=== PATIENT | female | born 1935 | race Two or more races ===

== ENCOUNTER 2017-06-06 07:11 | Inpatient (IN) | payer MEDICARE, BC ==
--- NOTE | ~2017-06-06 | CO ---
Unit #: [id number] #: [id number] Patient: CAYLA CARDENAS [id number] [address] [place], [place] [address] [id number] I MR#: [id number] NAME: CAYLA CARDENAS ROOM: 566 Age: 82 Sex: F Admission Date: 06/06/2017 : 1935 Attending Physician: Malinda Quesada M.D. Primary Care Physician: Yon Workman M.D. Consultation Date: 06/06/2017 CONSULTATION REPORT HISTORY OF PRESENT ILLNESS An 82-year-old female, who is a very poor historian, in fact she told me she had no medical problems and the family stated she had no medical problems other than a weak kidney. She has multiple medical problems including significant heart disease and left ventricular dysfunction. She had increasing shortness of breath last night, presented to the emergency room. She has improved with diuresis. She denies chest pain, sputum production, pleurisy, hemoptysis, fever, or wheezing. Again, history could be somewhat unreliable. PAST MEDICAL HISTORY Taken from the chart. She has coronary artery disease, diabetes, hypertension, left ventricular dysfunction with an EF of 40%, mild pulmonary hypertension with an RVSP of 30-40, hypothyroidism, hyperlipidemia and she has chronic kidney disease, followed by Dr. Garcias. MEDICATIONS At home per med rec sheet include Norvasc, gabapentin, Lantus insulin, Bumex, atenolol, Lipitor, Synthroid, a variety of eye drops, gabapentin. ALLERGIES No known medical allergies. SOCIAL HISTORY She does not smoke or drink. FAMILY HISTORY No familial lung disease. REVIEW OF SYSTEMS She denies any leg pain, swelling, hematuria, dysuria, abdominal pain, melena, hematochezia, hematemesis, emesis, chest pain, palpitations, headache, dizziness. Further review of systems negative. PHYSICAL EXAMINATION GENERAL: Reveals a patient, who is comfortable, head mildly elevated. VITAL SIGNS: She is afebrile, pulse 70, respiratory rate is 19, blood pressure 144/65. HEENT: Pupils are equal, round, and reactive to light. Sclerae anicteric. Head atraumatic. NECK: Supple. No supraclavicular or cervical adenopathy appreciated. Mucous membranes moist. CHEST: Crackles at the bases. No wheeze or stridor. CARDIAC: Reveals regular rate and rhythm. A systolic murmur. No gallop. Unit #: [id number] #: [id number] Patient: CAYLA CARDENAS ABDOMEN: Obese, soft, and nontender. No hepatomegaly or rebound. EXTREMITIES: Reveal no clubbing or cyanosis. There is edema. No calf tenderness. SKIN: Warm and dry without rash or diaphoresis. NEUROLOGIC: Grossly intact. No focal, motor or sensory deficits. DIAGNOSTIC STUDIES IMAGING STUDIES: Chest x-ray, cardiomegaly and congestive heart failure. LABORATORY RESULTS: BUN is 30, creatinine is 1.5, potassium 5.5, BNP 415. INR normal. Cardiac enzymes normal. White blood cell count 12.5, hemoglobin 10, platelet count 258. Blood cultures performed and are pending. Echocardiogram; EF 40% to 45%, moderate mitral regurgitation, RVSP 44. IMPRESSION 1. Acute hypoxemic respiratory failure secondary to congestive heart failure. 2. Congestive heart failure secondary to the left ventricular dysfunction and valvular heart disease, made worse by likely obstructive sleep apnea. 3. Obesity, snoring, likely obstructive sleep apnea. 4. Medical problems listed above. PLAN Diuresis. Consider good chest x-ray at a later date, but I suspect her crackles and interstitial infiltrates will resolve with diuresis. If not, consider PFTs and noncontrast CT. Outpatient nocturnal polysomnography, given her left ventricular dysfunction and other medical problems, would be suggested. Thank you very much for allowing me to participate in the care of Ms. Womack. Dictated by... Jos Schrader M.D. AXEL/sincere TD: 06/07/2017 01:14 JOB #: [id number] CC: April Gamez M.D. CONSULTATION REPORT Page 1 of 1 X Jos Schrader MD CONSULTATION REPORT
--- NOTE | ~2017-06-06 | EKG ---
PATIENT: CAYLA CARDENAS UNIT #: [id number] Ventricular Rate: 67 BPM Atrial Rate: 67 BPM P-R Interval: 188 ms QRS Duration: 96 ms Q-T Interval: 420 ms QTC Calculation(Bezet): 443 ms P [place]: 18 degrees Calculated R [place]: 33 degrees Calculated T [place]: 88 degrees Diagnosis Line: Normal sinus rhythm Diagnosis Line: Normal ECG Diagnosis Line: When compared with ECG of 06-JUN-2017 08:24, Diagnosis Line: (unconfirmed) Diagnosis Line: Questionable change in QRS axis Diagnosis Line: Confirmed by MINERVA YA MD ([id number]) on 06/08/2017 Diagnosis Line: 11:31:52 PM INTERPRETING MD: BHAKTI SHAH
--- NOTE | ~2017-06-06 | CR63 ---
[facility] A Service of [facility] RADIOLOGY TEXT RESULTS PATIENT: CAYLA CARDENAS LOCATION: [facility] 566-01 : 37 UNIT #: [id number] AGE: [address]: Malinda Quesada MD SEX: F ORDER DR: [id number] [facility] [address] [facility]. [place], [place] [address] [id number] I MR#: [id number] Acc #: [id number] NAME: CAYLA CARDENAS : 1935 SEX: F STUDY DATE/TIME: 06/07/2017 13:19 UNIT: [facility] ROOM: [facility] STUDY DESCRIPTION: CR Chest 2 View Attending Physician: Malinda Quesada M.D. Ordering Physician: Jos Schrader M.D. Primary Care Physician: Yon Workman M.D. MEDICAL IMAGING REPORT This report is preliminary unless electronic signature is present EXAM Chest 06/07/2017 HISTORY 82-year-old woman with short of air. History of [place], high blood pressure, congestive heart failure, symptoms indicated since yesterday. COMPARISON Portable chest 06/06/2017 FINDINGS Two-view chest demonstrates cardiomegaly with calcific plaquing in the arch. Vascular congestion is present, accentuated somewhat by large body habitus and low lung volumes. Left pleural effusion suspect with trace effusion on the right. It is difficult to exclude coexisting infiltrate in the left lower lobe. IMPRESSION Atherosclerotic cardiovascular disease with congestive heart failure slightly improved. Trace right effusion with left pleural effusion noted. Airspace infiltrate is not excluded from the left lower lobe, consistent with lobar edema and/or pneumonia. Dictated by... Warren Ornelas M.D. THIS IS AN ELECTRONICALLY VERIFIED REPORT Warren Ornelas M.D. at 06/08/2017 8:09 AM CELE/landry TD: 06/07/2017 22:21 JOB #: [id number] [facility] A Service of [facility] RADIOLOGY TEXT RESULTS PATIENT: CAYLA CARDENAS LOCATION: [facility] 566-01 : 37 UNIT #: [id number] AGE: [address]: Malinda Quesada MD SEX: F ORDER DR: MEDICAL IMAGING REPORT Page 1 of 1 COPY
--- NOTE | ~2017-06-06 | CO ---
Unit #: [id number] #: [id number] Patient: CAYLA CARDENAS [id number] [address] [address] [id number] I MR#: [id number] NAME: CAYLA CARDENAS ROOM: 566 Age: 82 Sex: F Admission Date: 06/06/2017 : 1935 Attending Physician: Malinda Quesada M.D. Primary Care Physician: Yon Workman M.D. Consultation Date: 06/06/2017 CONSULTATION REPORT REASON FOR CONSULTATION Hyperkalemia, elevated creatinine level. HISTORY OF PRESENT ILLNESS The patient is an 82-year-old [place] obese lady with known history of hypertension, type 2 diabetes, chronic kidney disease stage 3 with baseline creatinine between 1.5 to 2, admitted with shortness of breath and difficulty breathing. The patient is known to me from office. She has underlying CKD, stage 3 attributed to diabetic nephropathy clinically and type IV RTA with hypoaldosteronism with intermittent hyperkalemia managed successfully with diuretics. The patient has not been on fludrocortisone with her underlying expanded volume. The patient has never needed dialysis in the past. The patient also has underlying coronary artery disease with an ejection fraction of 40% to 45%, hypertension, hyperlipidemia, hypothyroidism. PAST MEDICAL HISTORY Significant for hypertension, hyperlipidemia, chronic kidney disease stage 3, chronic hyperkalemia secondary to hypoaldosteronism. Other past medical history of hypothyroidism, neuropathy, morbid obesity, CAD with angioplasty and stent placement in 2009. PAST SURGICAL HISTORY Significant for , bilateral knee surgery. SOCIAL HISTORY The patient is , lives at home with her family, and does not drink or smoke. ALLERGIES No known drug allergies. REVIEW OF SYSTEMS CVS: As above. RESPIRATORY: No expectoration. GI: No diarrhea. No vomiting. : No hematuria. No dysuria. PHYSICAL EXAMINATION GENERAL: The patient is awake, alert, and oriented. VITAL SIGNS: Temperature is 98 degrees, saturation 97%, blood pressure is 153/66, heart rate is 70 per minute. HEENT: Head is atraumatic. Extraocular movements are intact. Pupils are reactive. Sclerae are anicteric. Unit #: [id number] #: [id number] Patient: CAYLA CARDENAS NECK: Supple. There is no elevation of the JVD. CHEST: Clear. Air entry is equal bilaterally. HEART: S1, S2 audible. There is no S3, no S4. ABDOMEN: Soft. There is no organomegaly. No guarding. No rigidity. No rebound tenderness. EXTREMITIES: There is 1 to 2+ edema. PAROLE OR PROBATION OFFICER: Motor system is intact. Cerebellar system is intact. DIAGNOSTIC STUDIES LABORATORY RESULTS: Sodium is 136, potassium is 5.5, chloride is 23, BUN is 30, creatinine is 1.5, glucose is 235, calcium is 8.5. WBC 12.5, hemoglobin is 10, hematocrit is 31.7, platelets are 258. BNP is 415. IMPRESSION 1. Hyperkalemia secondary to hypoaldosteronism clinically secondary to diabetes, type IV RTA. We will increase Bumex. We will hold fludrocortisone at this time. No need for Kayexalate. Restrict potassium in the diet. 2. Chronic kidney disease, stage 3 secondary to diabetic nephropathy clinically. 3. Diabetes. 4. Renal function is close to baseline, volume is expanded. We will continue diuresis. 5. Anemia. 6. Coronary artery disease. 7. Congestive heart failure. 8. Hyponatremia. 9. History of congestive heart failure/cardiomyopathy. Dictated by... Bimal Garcias M.D. RA/sincere TD: 06/07/2017 01:41 JOB #: [id number] CONSULTATION REPORT Page 1 of 1 X Bimal Garcias MD X CONSULTATION REPORT
--- NOTE | ~2017-06-06 | EKG ---
PATIENT: CAYLA CARDENAS UNIT #: [id number] Ventricular Rate: 69 BPM Atrial Rate: 69 BPM P-R Interval: 184 ms QRS Duration: 88 ms Q-T Interval: 420 ms QTC Calculation(Bezet): 450 ms P [place]: 29 degrees Calculated R [place]: 92 degrees Calculated T [place]: 61 degrees Diagnosis Line: Normal sinus rhythm Diagnosis Line: Rightward axis Diagnosis Line: Septal infarct , age undetermined Diagnosis Line: Abnormal ECG Diagnosis Line: No previous ECGs available Diagnosis Line: Confirmed by MINERVA YA MD ([id number]) on 06/08/2017 Diagnosis Line: 10:50:15 PM INTERPRETING MD: BHAKTI SHAH
--- NOTE | ~2017-06-06 | CO ---
Unit #: [id number] #: [id number] Patient: CAYLA CARDENAS [id number] [address] [place], [place] [address] [id number] I MR#: [id number] NAME: CAYLA CARDENAS ROOM: 566 Age: 82 Sex: F Admission Date: 06/06/2017 : 1935 Attending Physician: Malinda Quesada M.D. Primary Care Physician: Yon Workman M.D. Consultation Date: 06/06/2017 CONSULTATION REPORT REASON FOR CONSULTATION Acute on chronic systolic congestive heart failure. HISTORY OF PRESENT ILLNESS This is an 82-year-old female from [place], who is well known to Dr. Looney. She sees in our office. She has a previous AZ and stents and her last cath was back in 2009, which revealed the stents were widely patent. She had her last stress test in 2012. The patient's LVEF is 40% to 45% on her last echo back in 2014, she has chronic kidney disease stage 3 to 4. She has diabetes, hypertension, hyperlipidemia, and hypothyroidism. The patient was in [facility] with pneumonia. She has been in congestive heart failure before. She woke up this morning very dyspneic and felt smothery. Her daughter felt like she was cold, like she had chills, but the daughter who is at the bedside says the patient was doing fairly well in the last couple of days. No recent travel and no recent illness. She has occasional dry cough. Denies chest pain or pain in her neck, bilateral jaws, shoulders, arms, or elbow. She denies palpitations. No dizziness, presyncope, or syncope. She does have a chronic lower extremity edema. In the emergency room, the patient's blood pressure was 147/60, heart rate 72, respirations 18, temperature 97.7, and O2 saturation on admission on room air, her sat was 78%, but right now on 4L nasal cannula, she is 100%. Her chest x-ray indicates congestive heart failure. Her BNP is 415. Her creatinine is 1.5 with a potassium of 5.5. The patient was given albuterol treatment and 125 mg of IV Solu-Medrol along with 40 of IV Lasix. Cardiology consulted to assist with evaluation and management. It is noted that her initial cardiac enzymes are negative. Her EKG is sinus rhythm, nothing acute. PAST MEDICAL HISTORY 1. Diabetes mellitus, type 2. 2. Hypertension. 3. Hyperlipidemia. 4. Hypothyroidism. 5. Neuropathy. 6. Chronic kidney disease, follows with Dr. Garcias. Her baseline creatinine is 1.6 to 1.7, and was in stage 3-4 chronic kidney disease. 7. Coronary artery disease and previous [place] status post PCI and stent to mid LAD in 1997. In 1999, she had another stent placed in the distal LAD. The mid-LAD stent with patent. Her last cardiac cath was in 2009 that Unit #: [id number] #: [id number] Patient: CAYLA CARDENAS showed both stents widely patent. It was performed because of a false-positive stress test. Last stress test was on 01/21, which showed a small apical infarct with an area of ayo-infarction and ischemia, but the patient was asymptomatic, and the results of the 2009 false-positive stress test, they elected no catheterization at that time. In 09/2015, a 2D echo, which was done at [facility], revealed LVEF of 40% to 45% with mild mitral regurgitation, mild tricuspid regurgitation with elevated RVSP of 30 to 40 mmHg with aortic valve mildly calcified and zddqikav-pm-[id number] mitral annular calcification. 8. Chronic systolic diastolic congestive heart failure. 9. Obesity, weight 175 pounds. 10. Nonsmoker. 11. Neuropathy. PAST SURGICAL HISTORY 1. Status post PCI and stent in 1997 to the mid LAD and in 2009 status post PCI and stent to the distal LAD. 2. Bilateral knee surgery. 3. section. HOME MEDICATIONS This is preliminary med rec that has to be reconciled. 1. Amlodipine 10 mg 1 tablet daily. 2. Gabapentin 400 mg 1 tablet at bedtime. 3. Lantus 40 units subcutaneously daily. 4. Latanoprost eye drops 1 drop both eyes at bedtime. 5. Atorvastatin 20 mg 1 tablet daily. 6. Amlodipine 10 mg 1 tablet daily. 7. Atenolol 50 mg 1 tablet daily. 8. Bumex 2 mg 1 tablet p.o. daily. 9. Timolol eye drops 1 drop both eyes twice daily. 10. Levothyroxine 112 mcg 1 tablet p.o. daily. 11. She is on Bumex. 12. Aspirin 325 daily. 13. B complex 1 tablet daily. 14. Vitamin E 500 mg 1 tablet daily. 15. Glucosamine chondroitin diet 1 tablet daily. 16. Sodium bicarbonate 650 mg 1 tablet twice daily. 17. Calcitonin 0.5 mg 1 tablet every other day. As noted above, this will be reconciled. ALLERGIES No known drug allergies. SOCIAL HISTORY The patient lives with her spouse. She ambulates with a cane and walker only. She is a very sedentary due to her multiple medical issues. FAMILY HISTORY No known coronary artery disease in her immediate family members. PHYSICAL EXAMINATION GENERAL: Ms. Cardenas is an 82-year-old female. She has some dyspnea with conversation and at rest, but in no distress. VITAL SIGNS: Blood pressure 143/75, heart rate 70, respirations 16, temperature 97.7, and O2 saturations 94% on 4L. NECK: Trachea midline. No thyromegaly or lymphadenopathy. Normal carotid upstrokes. No jugular venous distention. Unit #: [id number] #: [id number] Patient: CAYLA CARDENAS HEART: S1 and S2. Regular rate and rhythm. Soft systolic murmur over aortic region and the left sternal border. LUNGS: Very diminished. Some fine rales in bases and upper airways have some scattered wheezes. ABDOMEN: Obese, soft, and nontender. EXTREMITIES: Pedal pulses are palpable, 2+ pedal edema. DIAGNOSTIC STUDIES LABORATORY RESULTS: Glucose 235, BUN 30, creatinine 1.5, EGFR is 32.6, sodium 136, potassium is 5.5, chloride 106, CO2 of 23, and calcium is 8.5. Total protein 7.5, albumin 3.7, bilirubin total 0.5, AST 19, ALT 17, and alkaline phosphatase is 72. BNP is 415. Lactic acid is 1.0. WBCs 12.5, hemoglobin 10.0, hematocrit 31.7, and platelets 258. Initial cardiac enzymes; CK-MB is 1.4 and troponin less than 0.05, CK-MB is 1.7 and troponin less than 0.05. Blood cultures are pending. IMAGING STUDIES: Chest x-ray shows cardiomegaly with vascular congestion and interstitial alveolar prominence in both lungs, suggesting CHF. EKG shows normal sinus rhythm with ventricular rate of 69 beats per minute, rightward axis deviation, Q-waves noted in V1 through V3, and poor R-wave progression. IMPRESSION 1. Acute hypoxic respiratory failure. 2. Acute bronchitis. 3. Acute on chronic systolic congestive heart failure, last echo in 2014 shows left ventricular ejection fraction of 40% to 45%. 4. Hyperkalemia. 5. Acute on chronic kidney disease, stage 3-4. 6. Diabetes mellitus, type 2. 7. Hypertension. 8. Hyperlipidemia. 9. Hypothyroidism. 10. Coronary artery disease with previous myocardial infarction status post percutaneous coronary intervention and stents in the mid and distal left anterior descending, which were widely patent on the last catheterization in 2009. 11. Nonsmoker. 12. Obesity, 175 pounds. 13. Neuropathy. PLAN 1. Cardiology consult to assist with evaluation and management. We will continue to gently diurese with IV Lasix 20 mg IV every 12 hours[address] We will have Dr. Garcias, the patient's fabric inspector, to be consulted to help with management. The family is concerned with her kidney issues. 2. We will stop the Norvasc due to her pedal edema and we will monitor her blood pressure. We could add hydralazine if needed for blood pressure management. She is on a beta-mirella. 3. There is no SENTHIL inhibitor or ARB for cardiomyopathy because of acute on chronic kidney disease. 4. We will obtain 2D echo, looking back on records at [facility], her last echo was in 2014, so we will re-evaluate. So far, her cardiac enzymes are negative and EKG does not show anything acute. On exam, there are no signs or symptoms of unstable angina. 5. Obtain fasting lipid profile and evaluate. 6. Further recommendations pending per Dr. Gamez. Thank you very much for allowing us to assist in care. Unit #: [id number] #: [id number] Patient: CAYLA CARDENAS Dictated by... Jose Chavira/sincere TD: 06/06/2017 11:32 JOB #: [id number] CONSULTATION REPORT Page 1 of 1 X Melani Carrasquillo APRN CONSULTATION REPORT
--- NOTE | ~2017-06-06 | HP ---
Unit #: [id number] #: [id number] Patient: CAYLA CARDENAS [id number] [facility] [address] [facility]. [place], [place] [address] [id number] I MR#: [id number] NAME: CAYLA CARDENAS ROOM: 32489 Age: 82 Sex: F Admission Date: 06/06/2017 : 1935 Attending Physician: Malinda Quesada M.D. Primary Care Physician: Yon Workman M.D. HISTORY AND PHYSICAL CHIEF COMPLAINT Shortness of breath. HISTORY OF PRESENTING ILLNESS Ms. Cardenas is an 82-year-old female with multiple medical problems who was doing well until yesterday. This morning around 3 o'clock she had yogurt because she thought her blood sugar was dropping. After that, two hours later, she started having shortness of breath. She was sweating. Patient's daughter called EMS and patient's oxygen saturation was 76%. Patient was brought to the ER at [facility] and is being admitted for acute hypoxic respiratory failure. Patient does not complain of chest pain. She does not complain of orthopnea or paroxysmal nocturnal dyspnea. She does not complain of any fever, chills, or rigors. She does have leg swelling, but that is kind of chronic. She does not complain of any nausea or vomiting. At this time, her shortness of breath has much improved. PAST MEDICAL HISTORY Patient has multiple medical history. 1. Coronary artery disease, status post angioplasty 20 years ago. Last catheterization was done in 2009, and both stents were widely patent. Ejection fraction of 40% to 45%. 2. Hypertension. 3. Hyperlipidemia. 4. Hypothyroidism. 5. Diabetes mellitus type 2. 6. Neuropathy. 7. Morbid obesity. 8. Chronic kidney disease. PAST SURGICAL HISTORY 1. section. 2. Bilateral knee surgeries. SOCIAL HISTORY Patient lives at home with her and son and frwxqkwv-kw-khc. No history of smoking, alcohol, or drug abuse. ALLERGIES No known drug allergies. REVIEW OF SYSTEMS No history of fever, chills, or rigors. No history of chest pain. No history of abdominal pain, no history of nausea or vomiting, and no Unit #: [id number] #: [id number] Patient: CAYLA CARDENAS history of constipation or diarrhea. Leg swelling is present. No history of dizziness or syncopal episode. PHYSICAL EXAMINATION GENERAL: Patient is being evaluated in ER room 13. VITAL SIGNS: Blood pressure is 144/65, respiratory rate 19, pulse 70, temperature 98.2, and oxygen saturation is 95% on face mask 100%. On admission, patient was on 4 liters nasal cannula, and her saturation was 100%. Patient laid down for echocardiogram, and that is when she desaturated, and patient was placed on 100% face mask. HEENT: Head is normocephalic. NECK: Supple. CHEST: Fair air entry, decreased at the bases. Rales are present. CARDIOVASCULAR: S1 and S2 positive. Regular rhythm. ABDOMEN: Obese. EXTREMITIES: Bilateral edema is present. CENTRAL NERVOUS SYSTEM: Awake, alert, and oriented x3. Does not seem to have any focal neurological deficit. DIAGNOSTIC STUDIES LABORATORY: WBC 12.5, hemoglobin 10, hematocrit 31.7, and platelet count of 258,000. Troponin less than 0.05. PT-INR 10.2 and 0.9. Lactic acid is 1. Sodium 136, potassium 5.5, chloride 106, BUN 30, and creatinine 1.5. Liver enzymes are stable. BNP is elevated to 415. Second set of troponin is less than 0.05. Glucose is 248. IMAGING: Chest x-ray, single view, was done with findings suggesting congestive heart failure. No dense consolidation or visible pleural fluid. ASSESSMENT Patient is being admitted to telemetry unit. Patient's family has refused ICU admission as she is Do Not Resuscitate. ADMITTING DIAGNOSES 1. Acute hypoxic respiratory failure. 2. Acute on chronic systolic congestive heart failure. 3. Acute bronchitis. 4. Hyperkalemia. 5. Acute on chronic kidney disease. 6. Diabetes mellitus type 2. 7. Coronary artery disease. Details are above. 8. History of chronic back pain. 9. Hypertension. 10. Hyperlipidemia. 11. Hypothyroidism. 12. Morbid obesity. PLAN Admit to telemetry unit. IV Lasix 20 mg q.12 is being started. [facility] will be consulted. Norvasc is being discontinued because of leg swelling. No SENTHIL or ARB inhibitors because of acute on chronic kidney disease. D-dimers will be done. Home medications will be reviewed and adjusted. Home medications are being reconciled at this time. Lovenox 40 mg subcutaneous daily. Echocardiogram is being done. Accu-Cheks a.c. and at bedtime and insulin sliding scale low-dose protocol. The plan of care has been discussed with the patient, patient's daughter, and patient's son-in-law at length. Patient's son-in-law is an Unit #: [id number] #: [id number] Patient: CAYLA CARDENAS oncologist, and most of the history was taken from him. Patient's code status is Do Not Resuscitate. Please refer to progress note for further orders. Dictated by Elina Gentile TD: 06/06/2017 16:13 JOB #: [id number] HISTORY AND PHYSICAL Page 1 of 1 X Malinda Quesada MD X HISTORY AND PHYSICAL
--- NOTE | ~2017-06-06 | CR72 ---
[facility] A Service of [facility] RADIOLOGY TEXT RESULTS PATIENT: CAYLA CARDENAS LOCATION: [place] [address] : [birth year] UNIT #: [id number] AGE: [address]: Malinda Quesada MD SEX: F ORDER DR: [id number] [place] [id number] [facility]. [place], [place] [address] [id number] P MR#: [id number] Acc #: [id number] NAME: CAYLA CARDENAS : 1935 SEX: F STUDY DATE/TIME: 06/06/2017 8:10 UNIT: [facility]NAL[facility] ROOM: STUDY DESCRIPTION: CR Chest Single View Portable Ordering Physician: Yunier Soares M.D. MEDICAL IMAGING REPORT This report is preliminary unless electronic signature is present EXAM Portable chest INDICATION Shortness of air this morning. PROCEDURE Frontal view chest. COMPARISON None. FINDINGS Cardiomegaly. Vascular congestion and interstitial and alveolar prominence in both lungs. No visible pleural fluid or pneumothorax. IMPRESSION Findings suggesting CHF. No dense consolidation or visible pleural fluid. Dictated by... Rodney Lubin M.D. THIS IS AN ELECTRONICALLY VERIFIED REPORT Rodney Lubin M.D. at 06/07/2017 8:14 AM KEN/raul TD: 06/06/2017 09:01 JOB #: [id number] MEDICAL IMAGING REPORT Page 1 of 1 COPY
--- NOTE | ~2017-06-06 | DS ---
Unit #: [id number] #: [id number] Patient: CAYLA CARDENAS [id number] [address] [address] [id number] I MR#: [id number] NAME: CAYLA CARDENAS ROOM: 566 Age: 82 Sex: F Admission Date: 06/06/2017 : 1935 Discharge Date: 06/09/2017 Attending Physician: Malinda Quesada M.D. Primary Care Physician: Yon Workman M.D. DISCHARGE SUMMARY FINAL DIAGNOSES 1. Acute hypoxic respiratory failure, improved. 2. Acute on chronic systolic congestive heart failure. 3. Ejection fraction of 40% to 45%. 4. Acute on chronic kidney disease. 5. Hypertension. 6. Hyperlipidemia. 7. Diabetes mellitus type 2. 8. Coronary artery disease with previous myocardial infarction, status post percutaneous coronary intervention/stent in left anterior descending. Stents are patent in 2009. 9. Morbid obesity. 10. Anemia. DISCHARGE MEDICATIONS 1. Neurontin 400 mg q. h.s. 2. Coreg 6.25 mg b.i.d. 3. Furosemide 40 mg twice a day. 4. Xalatan eyedrops both eyes at bedtime. 5. Lipitor 20 mg daily. 6. Hydralazine 25 mg twice a day. 7. Insulin 30 units subcu daily. 8. Levothyroxine 112 mcg p.o. daily. 9. Isosorbide 60 mg daily. 10. Vitamin D - continue home dose. 11. Continue eyedrops. 12. Ferrous sulfate 325 mg daily. HOSPITAL COURSE 82-year-old female who was admitted on 06/06/17 with shortness of breath and chest tightness. Patient was admitted to telemetry unit. Patient was diagnosed with acute hypoxic respiratory failure secondary to acute and chronic systolic congestive heart failure. Patient was treated with IV diuretics. Medications were adjusted. Patient was seen by Dr. Espino. Patient is doing much better at this time. Congestive heart failure education was provided. [facility] to follow the patient at home. Patient's kidney functions were worse. Patient does have history of chronic kidney disease and Dr. Garcias evaluated the patient during hospitalization. Patient's medications have been adjusted. Patient's Bumex has been discontinued and Lasix has been started. Discussed with patient's family at length. They do verbalize understanding plan of care. Patient refused to go to subacute rehab, is being sent home with home healthcare. Unit #: [id number] #: [id number] Patient: CAYLA CARDENAS DISCHARGE LAB WORKUP Sodium 135, potassium 3.8, chloride 96, BUN 49, creatinine 1.6, calcium 8.9. CBC shows WBC 11.3, hemoglobin 8.6, hematocrit 26.7 and platelet count of 229. DISCHARGE INSTRUCTIONS 1. Patient is being discharged home in stable condition. 2. Follow up with primary care provider in one week. 3. Follow up with Dr. Looney 07/29/17. 4. Follow up with Dr. Garcias, renal, in three to four weeks. 5. CBC and BMP done in one week. Dictated by... Malinda Quesada M.D. FEDERICO/jose luis TD: 06/11/2017 09:42 JOB #: [id number] DISCHARGE SUMMARY Page 1 of 1 X Malinda Quesada MD X DISCHARGE SUMMARY
[2017-06-06 08:25] LABS: BASOPHIL# 0.1 X10e3 (0-0.3); BASOPHIL% 0.7 % (0-2.5); EOSINOPHIL# 0.3 X10e3 (0-0.7); EOSINOPHIL% 2.5 % (0.0-7.0); HEMATOCRIT 31.7 % (35.0-45.0); LYMPHOCYTE# 1.9 X10e3 (1.0-3.5); LYMPHOCYTE% 15.4 % (17.0-45.0); MEAN CELL VOLUME 91.9 FL (83-96); MEAN CORPUSCULAR HEMOGLOBIN 28.9 PG (28-34); MEAN CORPUSCULAR HGB CONC 31.5 g/dL (30-36); MEAN PLATELET VOLUME 7.6 FL (6.5-11.5); MONOCYTE# 0.6 X10e3 (0-1.0); MONOCYTE% 4.8 % (3.0-12.0); NEUTROPHIL# 9.6 X10e3 (1.5-7.1); NEUTROPHIL% 76.6 % (40-75); PLATELET COUNT 258 X10e3 (140-420); RED BLOOD COUNT 3.45 X10e (3.90-5.30); RED CELL DISTRIBUTION WIDTH 16.5 % (11.0-15.5); WHITE BLOOD COUNT 12.5 X10e3 (4.0-10.5)
[2017-06-06 08:27] LABS: DIFF IND NO
[2017-06-06 08:35] LABS: POC - CKMB 1.4 ng/mL (0.0-7.9); POC - TROPONIN <0.05 ng/mL (<=0.05)
[2017-06-06 08:40] LABS: INR 0.9; PARTIAL THROMBOPLASTIN TIME 26.8 SECONDS (23.5-31.3); PROTHROMBIN TIME (PATIENT) 10.2 SECONDS (10.0-11.7)
[2017-06-06 08:55] LABS: ALBUMIN SERUM 3.7 g/dL (3.5-5.0); BILIRUBIN, DIRECT 0.1 mg/dL (0.0-0.2); BILIRUBIN,INDIRECT 0.4 mg/dL (0.0-0.9); BILIRUBIN,TOTAL 0.5 mg/dL (0.2-2.0); CALCIUM SERUM 8.5 mg/dL (8.4-10.2); CREATININE SERUM 1.5 mg/dL (0.6-1.4); GLOM FILT RATE Estimated 32.6 mL/min (>60); PROTEIN TOTAL SERUM 7.9 g/dL (6.0-8.3)
[2017-06-06 09:01] LABS: POTASSIUM 5.5 mmol/L (3.5-5.1)
[2017-06-06] MEDS ORDERED: NORVASC10 MG PO (09:06)
[2017-06-06] MEDS ORDERED: VITAMIN D400 UNI2 PO (09:06)
[2017-06-06] MEDS ORDERED: GABAPENTIN400 MG PO (09:06)
[2017-06-06 10:11] LABS: POC - CKMB 1.7 ng/mL (0.0-7.9); POC - TROPONIN <0.05 ng/mL (<=0.05)
[2017-06-06] MEDS ORDERED: LANTUS100 UNITS/ SUBQ (14:54)
[2017-06-06] MEDS ORDERED: BUMEX2 MG PO (14:55)
[2017-06-06] MEDS ORDERED: ATENOLOL50 MG PO (14:57)
[2017-06-06] MEDS ORDERED: LIPITOR20 MG PO (14:58)
[2017-06-06] MEDS ORDERED: LATANOPROST2.5 ML OU (15:00)
[2017-06-06] MEDS ORDERED: LEVOTHYROXINE112 MCG PO (15:03)
[2017-06-06] MEDS ORDERED: DORZOLAMIDE-TIM10 ML OP (15:03)
[2017-06-06 17:18] LABS: CK TOTAL 28 IU/L (26-140)
[2017-06-06 19:06] LABS: URINE APPEARANCE CLEAR; URINE BILIRUBIN NEG (NEG); URINE BLOOD NEG (NEG); URINE COLOR YELLOW; URINE GLUCOSE NEG (NEG); URINE KETONE NEG (NEG); URINE LEUKOCYTE ESTERASE NEG (NEG); URINE NITRATE NEG (NEG); URINE PROTEIN NEG (NEG); URINE SPECIFIC GRAVITY 1.011 (1.003-1.035); URINE UROBILINOGEN 0.2 MG/DL (NEG)
[2017-06-06 19:08] LABS: CULTURE INDICATED? NO
[2017-06-06 22:03] LABS: CK TOTAL 25 IU/L (26-140)
[2017-06-07 07:19] LABS: BASOPHIL% 0.3 % (0-2.5); EOSINOPHIL% 0.1 % (0.0-7.0); HEMATOCRIT 29.3 % (35.0-45.0); HEMOGLOBIN 9.4 gm/dL (12.0-16.0); LYMPHOCYTE% 7.8 % (17.0-45.0); MEAN CELL VOLUME 91.4 FL (83-96); MEAN CORPUSCULAR HEMOGLOBIN 29.3 PG (28-34); MEAN CORPUSCULAR HGB CONC 32.1 g/dL (30-36); MEAN PLATELET VOLUME 8.3 FL (6.5-11.5); MONOCYTE# 0.4 X10e3 (0-1.0); MONOCYTE% 3.2 % (3.0-12.0); NEUTROPHIL# 11.4 X10e3 (1.5-7.1); NEUTROPHIL% 88.6 % (40-75); PLATELET COUNT 215 X10e3 (140-420); RED CELL DISTRIBUTION WIDTH 16.2 % (11.0-15.5); WHITE BLOOD COUNT 12.8 X10e3 (4.0-10.5)
[2017-06-07 08:04] LABS: CALCIUM SERUM 8.8 mg/dL (8.4-10.2); CREATININE SERUM 1.5 mg/dL (0.6-1.4); GLOM FILT RATE Estimated 32.6 mL/min (>60); POTASSIUM 5.1 mmol/L (3.5-5.1)
[2017-06-07 08:39] LABS: DIFF IND NO
[2017-06-08 05:40] LABS: HEMATOCRIT 26.7 % (35.0-45.0); HEMOGLOBIN 8.6 gm/dL (12.0-16.0); MEAN CELL VOLUME 90.1 FL (83-96); MEAN CORPUSCULAR HGB CONC 32.2 g/dL (30-36); RED BLOOD COUNT 2.96 X10e (3.90-5.30); WHITE BLOOD COUNT 11.3 X10e3 (4.0-10.5)
[2017-06-08 06:23] LABS: ALBUMIN SERUM 3.1 g/dL (3.5-5.0); BILIRUBIN,TOTAL 0.2 mg/dL (0.2-2.0); BUN/CREATININE RATIO 28.12; CALCIUM SERUM 8.8 mg/dL (8.4-10.2); CREATININE SERUM 1.6 mg/dL (0.6-1.4); GLOM FILT RATE Estimated 30.1 mL/min (>60); MAGNESIUM 1.7 mg/dL (1.6-3.0); POTASSIUM 4.4 mmol/L (3.5-5.1); PROTEIN TOTAL SERUM 5.9 g/dL (6.0-8.3)
[2017-06-08 12:21] LABS: IRON SERUM 42 ug/dL (28-170); TOTAL IRON BINDING CAPACITY 213 ug/dL (269-535); TRANSFERRIN 152 mg/dL (192-382); TRANSFERRIN SATURATION 20 % (20-50)
[2017-06-09 06:33] LABS: BUN/CREATININE RATIO 30.62; CALCIUM SERUM 8.9 mg/dL (8.4-10.2); CREATININE SERUM 1.6 mg/dL (0.6-1.4); GLOM FILT RATE Estimated 30.1 mL/min (>60); POTASSIUM 3.8 mmol/L (3.5-5.1)
[2017-06-09] MEDS ORDERED: IMDUR-ER60 M1 PO (16:36)
[2017-06-09] MEDS ORDERED: FERROUS SULFATE PO (16:38)
[2017-06-09] MEDS ORDERED: PROCRIT10000 UNIT INJ (16:52)
[2017-06-09] MEDS ORDERED: HYDRALAZINE HCL25 MG PO (16:54)
[2017-06-09] MEDS ORDERED: COREG6.25 MG PO (16:56)
[2017-06-09] MEDS ORDERED: LASIX PO (16:56)
== END 2017-06-09 18:31 | disposition home health service (06) | DRG 291 ==
LOC: CED 07:11 → CEDOF 09:30 → CED 09:50 → CEDOF 17:19 → C5C 17:19
PROVIDERS: Emergency Medicine; Internal Medicine Nephrology; Physician Assistant Medical
PROC: B24BZZZ Ultrasonography of Heart with Aorta (ICD-10-PCS; principal; 2017-06-06)
DX: I13.0 Hypertensive heart and chronic kidney disease with heart failure and stage 1 through stage 4 chronic kidney disease, or unspecified chronic kidney disease (principal); I50.23 Acute on chronic systolic (congestive) heart failure; J96.01 Acute respiratory failure with hypoxia; N18.4 Chronic kidney disease, stage 4 (severe); N17.9 Acute kidney failure, unspecified; E27.40 Unspecified adrenocortical insufficiency; E87.1 Hypo-osmolality and hyponatremia; E11.22 Type 2 diabetes mellitus with diabetic chronic kidney disease; Z87.891 Personal history of nicotine dependence; Z79.4 Long term (current) use of insulin; E11.40 Type 2 diabetes mellitus with diabetic neuropathy, unspecified; E78.5 Hyperlipidemia, unspecified; I25.10 Atherosclerotic heart disease of native coronary artery without angina pectoris; Z95.5 Presence of coronary angioplasty implant and graft; I25.2 Old myocardial infarction; E66.01 Morbid (severe) obesity due to excess calories; D64.9 Anemia, unspecified; E03.9 Hypothyroidism, unspecified; J20.9 Acute bronchitis, unspecified; E87.5 Hyperkalemia; G47.33 Obstructive sleep apnea (adult) (pediatric)
CPT/HCPCS: 36415; 71010; 71020; 80048; 80053; 80061; 80076; 81003; 82550; 82553; 82728; 82947; 83036; 83540; 83550; 83605; 83735; 83880; 84484; 85025; 85027; 85379; 85610; 85730; 87040; 93005; 93306; 94640; 94760; 96374; 97110; 97116; 97162; 97165; 97535; 99291; G8978-GP; G8979-GP; G8987-GO; G8988-GO; J0885; J1650; J1815; J1940; J2916; J2930